=== PATIENT | male | born 1950 | race Caucasian/White ===

== ENCOUNTER 2021-07-23 10:04 | Outpatient (CLI) | payer MEDICARE ==
[2021-07-23 23:01] LABS: SARS-CoV-2 PCR by NAA Not Detected (NotDetected)
== END 2021-07-23 10:05 | disposition home or self-care (01) ==
LOC: CSHLAB 10:04
PROVIDERS: ATTEND Internal Medicine Gastroenterology
DX: Z20.822 Contact with and (suspected) exposure to COVID-19 (principal); K63.5 Polyp of colon
CPT/HCPCS: U0003; U0005

== ENCOUNTER 2022-05-11 13:08 | Outpatient (CLI) | payer MEDICARE ==
[~2022-05-11 13:08] MED LIST: Magnevist 469MG/ML 20 ML VIAL ONE
== END 2022-05-11 13:09 | disposition home or self-care (01) ==
LOC: CSHMRI 13:08
PROVIDERS: ATTEND Urology
DX: C61 Malignant neoplasm of prostate (principal)
CPT/HCPCS: 72197

== ENCOUNTER 2022-06-29 10:37 | Day surgery (SDC) | payer MEDICARE ==
[2022-06-25 16:05] VITALS: BMI 24.4
[~2022-06-29 10:37] MED LIST changes: -Magnevist 469MG/ML 20 ML VIAL ONE; +PROPOFOL 20 ML ONE
[2022-06-29] MEDS ORDERED: PROPOFOL 40 ML ONE (12:04)
[2022-06-29] MEDS ORDERED: PROPOFOL 20 ML ONE (13:05)
== END 2022-06-29 14:10 | disposition home or self-care (01) ==
LOC: CSHSDC 10:37
PROVIDERS: ATTEND Internal Medicine Gastroenterology
PROC: 0DBM8ZZ Excision of Descending Colon, Via Natural or Artificial Opening Endoscopic (ICD-10-PCS; principal; 2022-06-29)
DX: Z12.11 Encounter for screening for malignant neoplasm of colon (principal); K63.5 Polyp of colon; K57.30 Diverticulosis of large intestine without perforation or abscess without bleeding; K64.9 Unspecified hemorrhoids; J45.909 Unspecified asthma, uncomplicated; K21.9 Gastro-esophageal reflux disease without esophagitis; N40.0 Benign prostatic hyperplasia without lower urinary tract symptoms; Z79.899 Other long term (current) drug therapy
CPT/HCPCS: 88305; 93005; 93010; J2704